=== PATIENT | male | born 1995 ===

== ENCOUNTER 2024-02-01 20:44 | Emergency (ER) | payer SELFPAY ==
[~2024-02-01] VITALS: Ht 182.9 cm; Wt 83.9 kg
== END 2024-02-01 23:18 | disposition left against medical advice (07) ==
LOC: ER 20:44
DX: K61.1 Rectal abscess (principal); F15.10 Other stimulant abuse, uncomplicated; R10.84 Generalized abdominal pain; G89.29 Other chronic pain; Z79.899 Other long term (current) drug therapy